=== PATIENT | female | born 1945 | race Caucasian/White ===

== ENCOUNTER 2017-05-27 03:09 | Observation (INO) | payer OTHER ==
--- NOTE | 2017-05-27 03:12 | EDPHY ---
H & P Time Seen by Provider: 05/27/17 03:12 HPI/ROS: HPI CHIEF COMPLAINT: "MY HEART IS POUNDING" HTN HISTORY OF PRESENT ILLNESS: Patient is a 72-year-old female, she denies having any significant medical history except for hypertension, she does not take any blood pressure medications she has been off of it for many months and does not remember what she is supposed to be taking. She states that her primary care doctor is at [place]. And then months ago she stopped taking her blood pressure medication. She states she does not have any significant medical history. Only surgical history is tonsillectomy. She presents to the emergency room stating that approx an hour ago she developed pounding in her chest, Palpitations or "very strong heart beats" States that her heart is beating very strong and she is worried that she has a fast heart rate is pounding. Additionally she reports lightheaded. Denies severe headache denies severe shortness of breath or chest pain. Blood pressure noted to be 226/97 upon arrival. 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 Past Medical History: Hypertension not on the medication Past Surgical History: Tonsillectomy no recent surgery Social History: Denies drugs alcohol tobacco. Family History: Noncontributory ROS REVIEW OF SYSTEMS: A comprehensive 10 point review of systems is otherwise negative aside from elements mentioned in the history of present illness. Exam Constitutional triage nursing summary reviewed, vital signs reviewed, awake/ alert. Vital signs at triage noted to be hypertensive. 226/97. Eyes normal conjunctivae and sclera, EOMI, PERRLA. HENT normal inspection, atraumatic, moist mucus membranes, no epistaxis, neck supple/ no meningismus, no raccoon eyes. Respiratory clear to auscultation bilaterally, normal breath sounds, no respiratory distress, no wheezing. Cardiovascular rate normal, regular rhythm, no murmur, no edema, distal pulses normal. Gastrointestinal soft, non-tender, no rebound, no guarding, normal bowel sounds, no distension, no pulsatile mass. Genitourinary no CVA tenderness. Musculoskeletal no midline vertebral tenderness, full range of motion, no calf swelling, no tenderness of extremities, no meningismus, good pulses, neurovascularly intact. Skin pink, warm, & dry, no rash, skin atraumatic. Neurologic awake, alert and oriented x 3, AAOx3, moves all 4 extremities equally, motor intact, sensory intact, CN II-XII intact, normal cerebellar, normal vision, normal speech. Psychiatric normal mood/affect. Heme/Lymph/Immune no lymphadenopathy. Differential diagnosis includes but is not limited to: Hypertensive emergency, hypertension urgency ACS, atypical chest pain, pneumothorax, pneumonia, pulmonary embolism, aortic dissection, congestive heart failure, tumor, musculoskeletal pain, esophageal pain, GERD, peptic ulcer disease, pancreatitis Medical Decision Making: Plan for this patient IV establishment blood draw, check basic blood work, chest x-ray, EKG, 10 mg IV hydralazine as her blood pressure is 226/97. Close monitoring re-evaluation. Re-evaluation: EKG interpretation by me on record in [email or web address] system. Impression time of EKG 3:22 a.m., sinus rhythm rate of [address] elevation no ST depression no significant T-wave abnormalities. ED x-ray chest one view: Unremarkable chest x-ray one view. Image interpreted by myself. 0429: Re-Examination at this time current blood pressure 123/66, heart rate 84 , pulse ox 96% on room air. Resting comfortably. This was after 10 mg IV hydralazine. Denies chest pain or shortness of breath at this time. 0523: Current blood pressure 135/62, heart rate 77, pulse ox 99% on room air. Urinalysis reviewed shows nitrite positive. 1 g Rocephin has been ordered. Urine culture will be ordered. Keflex prescribed for home. 0553: Patient currently resting comfortably she has no complaints she denies chest pain or shortness of breath. Current blood pressure 135/62, heart rate 81 , pulse ox 100% on room air. She is resting comfortably. She is receiving IV Rocephin at this time for UTI. Keflex will be prescribed. She did not have any chest pain shortness of breath upon arrival or during her ER visit but did come in for strong heartbeat and noted to be hypertensive her blood pressure greatly improved with just 10 mg IV hydralazine. She is doing well. Blood pressures been stable here. She would like to go home. Plan will be for repeat EKG and troponin if these are unremarkable are allow her to go home. However I did discussed return precautions with her. She understands return emergency room she develops worsening chest pain shortness of breath high blood pressure fever questions or concerns. EKG interpretation by me on record in [email or web address] system. Impression time of EKG 5:50 a.m., this is sinus rhythm rate of [address] elevation no ST depression no significant T-wave abnormalities. Rather unremarkable EKG. 0638: Repeat troponin is increasing. However technically not positive however given how hypertensive she was at her heart "pounding I will observe her today in the hospital. Given that the patient's troponin is increased, her age of 72, and how hypertensive she was I do think it is reasonable to observe her here today in the hospital. I have asked the hospitalist service to watch her repeat troponin possibly have Cardiology see her. I spoke with Dr. Webb. Source: Patient Constitutional: Initial Vital Signs Temperature (C) 36.7 C 05/27/17 03:11 Heart Rate 74 05/27/17 03:11 Respiratory Rate 18 05/27/17 03:11 Blood Pressure 226/97 H 05/27/17 03:11 O2 Sat (%) 96 05/27/17 03:11 O2 Delivery Mode Nasal Cannula O2 (L/minute) 2 Allergies/Adverse Reactions: No Known Allergies Allergy (Unverified 05/27/17 03:16) Home Medications: Medication Instructions Recorded Acetaminophen [Tylenol 325mg (*)] 325 mg PO DAILY PRN 05/27/17 Calcium Carbonate [Oyster Shell 500 mg PO DAILY 05/27/17 Calcium 500 mg (*)] Cholecalciferol Vit D3 [Vitamin D3 1,000 units PO DAILY 05/27/17 (*)] Glucosamine/Chondroitin 1 each PO DAILY 05/27/17 [Glucosamine/Chondroitin (*)] Herbals/Supplements -Info Only 1 each PO DAILY 05/27/17 Lisinopril [Zestril 10 mg (*)] 10 mg PO DAILY #30 tab 05/27/17 Multivitamins [Multivitamin (*)] 1 each PO DAILY 05/27/17 Medical Decision Making - Data Points Laboratory Results: Laboratory Results 05/27/17 03:25 05/27/17 03:25 Microbiology Results: MICROBIOLOGY 05/27/17 04:42 Urine,Clean Catch Urine Culture - Preliminary Klebsiella Oxytoca/Raoutella Medications Given: Discontinued Medications Acetaminophen (Tylenol) 650 mg PO Q4HRS PRN PRN Reason: Pain, Mild/Fever, Can Take PO Stop: 11/23/17 06:46 Last Admin: 05/27/17 12:19 Dose: 650 mg Aspirin (Aspirin) 324 mg PO ONCE ONE Stop: 05/27/17 06:55 Last Admin: 05/27/17 06:55 Dose: 324 mg Enoxaparin Sodium (Lovenox) 40 mg SC DAILY [facility] Stop: 11/23/17 08:59 Last Admin: 05/27/17 08:58 Dose: 40 mg Hydralazine HCl (Apresoline) 10 mg IVP EDNOW ONE Stop: 05/27/17 03:36 Last Admin: 05/27/17 03:39 Dose: 10 mg Sodium Chloride (Ns) 500 mls @ 0 mls/hr IV ONCE ONE PRN Reason: Wide Open Stop: 05/27/17 03:33 Last Admin: 05/27/17 03:38 Dose: 500 mls Ceftriaxone Sodium/Dextrose (Rocephin 1 Gm (Premix)) 50 mls @ 100 mls/hr IV EDNOW ONE PRN Reason: Protocol Stop: 05/27/17 05:52 Last Admin: 05/27/17 05:34 Dose: 50 mls Lisinopril (Zestril) 10 mg PO DAILY [facility] Stop: 11/23/17 13:44 Last Admin: 05/27/17 14:34 Dose: 10 mg Departure - Departure Disposition: [facility] Acute Clinical Impression: Palpitations Hypertension Qualifiers: Hypertension type: unspecified Qualified Code(s): I10 - Essential (primary) hypertension UTI (urinary tract infection) Qualifiers: Urinary tract infection type: acute cystitis Hematuria presence: without hematuria Qualified Code(s): N30.00 - Acute cystitis without hematuria Condition: Fair
--- NOTE | 2017-05-27 03:25 | CPEKG ---
Heart Rate: 85 RR Interval: 706 P-R Interval: 172 QRSD Interval: 70 QT Interval: 408 QTC Interval: 486 P [place]: 70 QRS [place]: 13 T Wave [place]: 67 EKG Severity - ABNORMAL ECG - EKG Impression: SINUS RHYTHM EKG Impression: ABNRM R PROG, CONSIDER ASMI OR LEAD PLACEMENT EKG Impression: BORDERLINE PROLONGED QT INTERVAL Electronically Signed By: Felipe Ley 27-May-2017 07:12:37
[2017-05-27] MEDS ORDERED: NS 500 ML IV ONE (03:32)
[2017-05-27] MEDS ORDERED: hydrALAZINE 20 MG/ML VIAL IVP ONE (03:35)
[2017-05-27 03:39] LABS: PLATELET COUNT 324 10^3/uL (150-400)
[2017-05-27 03:47] LABS: CREATINE KINASE 240 IU/L (0-156)
[2017-05-27 03:48] LABS: INR 0.84 (0.83-1.16); PROTIME(PATIENT) 11.7 SEC (12.0-15.0)
--- NOTE | 2017-05-27 06:00 | CPEKG ---
Heart Rate: 79 RR Interval: 759 P-R Interval: 196 QRSD Interval: 70 QT Interval: 412 QTC Interval: 473 P [place]: 70 QRS [place]: 20 T Wave [place]: 71 EKG Severity - NORMAL ECG - EKG Impression: SINUS RHYTHM Electronically Signed By: Felipe Ley 27-May-2017 07:12:37
[2017-05-27] MEDS ORDERED: ONDANSETRON 4 MG/2 ML VIAL IVP PRN (06:47)
[2017-05-27] MEDS ORDERED: ACETAMINOPHEN 325 MG TAB PO PRN (06:47)
[2017-05-27] MEDS ORDERED: ONDANSETRON DISINTEGRATING 4 MG TAB PO PRN (06:47)
[2017-05-27] MEDS ORDERED: ASPIRIN 81 MG CHEWABLE TAB ONE (06:52)
[2017-05-27] MEDS ORDERED: ASPIRIN 325 MG TAB PO ONE (06:53)
[2017-05-27] MEDS ORDERED: ASPIRIN 81 MG CHEWABLE TAB PO ONE (06:54)
--- NOTE | 2017-05-27 07:03 | PDGENHP ---
History and Physical - Chief Complaint Malaise - History of Present Illness 72 yo F w/ hx of HTN presents with lightheadedness and sensation of chest pounding. Patient states she has been feeling fatigued for a few days. Then, last evening, she noted dizziness, lightheadedness, and a sensation that her heart was pounding in her chest. She then came to the ED for evaluation. Upon arrival in the ED she was noted to be severely hypertensive, which resolved with hydralazine IV. At the time of my evaluation patient states she is feeling improved and denies chest pain. Of note, she was previously on treatment for hypertension, but she states that her PCP took her off the medication she was on because her BP has improved. She currently does not take any regular medications. History Information - Allergies/Home Medication List Allergies/Adverse Reactions: No Known Allergies Allergy (Unverified 05/27/17 03:16) I have personally reviewed and updated: family history, medical history - Past Medical History hypertension - Family History Positive for: stroke - Social History Smoking Status: Never smoked Review of Systems Review of Systems: ROS: 10pt was reviewed & negative except for what was stated in HPI & below Physical Exam Physical Exam: Temp Pulse Resp BP Pulse Ox 36.7 C 80 16 135/62 H 99 05/27/17 03:11 05/27/17 05:41 05/27/17 05:41 05/27/17 05:41 05/27/17 05:41 Constitutional: no apparent distress, not in pain Eyes: PERRL, EOMI Ears, Nose, Mouth, Throat: moist mucous membranes, no oral mucosal ulcers Cardiovascular: regular rate and rhythym, other (S4) Respiratory: no respiratory distress, clear to auscultation Gastrointestinal: normoactive bowel sounds, soft, non-tender abdomen Skin: warm, normal color Musculoskeletal: full muscle strength, no muscle tenderness Neurologic: AAOx3, CN II-XII Intact Psychiatric: interacting appropriately, not anxious Lab Data & Imaging Review 05/27/17 03:25 05/27/17 03:25 WBC 8.53 10^3/uL (3.80-9.50) 05/27/17 03:25 RBC 5.01 10^6/uL (4.18-5.33) 05/27/17 03:25 Hgb 14.7 g/dL (12.6-16.3) 05/27/17 03:25 Hct 44.4 % (38.0-47.0) 05/27/17 03:25 MCV 88.6 fL (81.5-99.8) 05/27/17 03:25 MCH 29.3 pg (27.9-34.1) 05/27/17 03:25 MCHC 33.1 g/dL (32.4-36.7) 05/27/17 03:25 RDW 13.7 % (11.5-15.2) 05/27/17 03:25 Plt Count 324 10^3/uL (150-400) 05/27/17 03:25 MPV 9.1 fL (8.7-11.7) 05/27/17 03:25 Neut % (Auto) 67.1 % (39.3-74.2) 05/27/17 03:25 Lymph % (Auto) 22.0 % (15.0-45.0) 05/27/17 03:25 [place] % (Auto) 7.0 % (4.5-13.0) 05/27/17 03:25 Eos % (Auto) 2.8 % (0.6-7.6) 05/27/17 03:25 Baso % (Auto) 0.7 % (0.3-1.7) 05/27/17 03:25 Nucleat RBC Rel Count 0.0 % (0.0-0.2) 05/27/17 03:25 Absolute Neuts (auto) 5.72 10^3/uL (1.70-6.50) 05/27/17 03:25 Absolute Lymphs (auto) 1.88 10^3/uL (1.00-3.00) 05/27/17 03:25 Absolute Monos (auto) 0.60 10^3/uL (0.30-0.80) 05/27/17 03:25 Absolute Eos (auto) 0.24 10^3/uL (0.03-0.40) 05/27/17 03:25 Absolute Basos (auto) 0.06 10^3/uL (0.02-0.10) 05/27/17 03:25 Absolute Nucleated RBC 0.00 10^3/uL (0-0.01) 05/27/17 03:25 Immature Gran % 0.4 % (0.0-1.1) 05/27/17 03:25 Immature Gran # 0.03 10^3/uL (0.00-0.10) 05/27/17 03:25 PT 11.7 SEC (12.0-15.0) L 05/27/17 03:25 INR 0.84 (0.83-1.16) 05/27/17 03:25 APTT 24.6 SEC (23.0-38.0) 05/27/17 03:25 Carboxyhemoglobin 1.7 % (0-1.5) H 05/27/17 03:25 Sodium 141 mEq/L (135-145) 05/27/17 03:25 Potassium 4.6 mEq/L (3.5-5.2) 05/27/17 03:25 Chloride 105 mEq/L (97-110) 05/27/17 03:25 Carbon Dioxide 24 mEq/l (22-31) 05/27/17 03:25 Anion Gap 12 mEq/L (8-16) 05/27/17 03:25 BUN 21 mg/dL (7-23) 05/27/17 03:25 Creatinine 0.9 mg/dL (0.6-1.0) 05/27/17 03:25 Estimated GFR > 60 05/27/17 03:25 Glucose 101 mg/dL (70-100) H 05/27/17 03:25 Calcium 9.3 mg/dL (8.5-10.4) 05/27/17 03:25 Magnesium 2.0 mg/dL (1.6-2.3) 05/27/17 03:25 Total Bilirubin 0.6 mg/dL (0.1-1.4) 05/27/17 03:25 Conjugated Bilirubin 0.4 mg/dL (0.0-0.5) 05/27/17 03:25 Unconjugated Bilirubin 0.2 mg/dL (0.0-1.1) 05/27/17 03:25 AST 34 IU/L (14-46) 05/27/17 03:25 ALT 41 IU/L (9-52) 05/27/17 03:25 Alkaline Phosphatase 78 IU/L (38-126) 05/27/17 03:25 Creatine Kinase 240 IU/L (0-156) H 05/27/17 03:25 CK-MB (CK-2) Fraction 3.97 ng/mL (0.00-3.19) H 05/27/17 03:25 CK-MB (CK-2) % 1.7 % (0.0-4.0) 05/27/17 03:25 Creatine Kinase Interp NEGATIVE (NEGATIVE) 05/27/17 03:25 Troponin I 0.018 ng/mL (0.000-0.034) 05/27/17 06:00 NT-Pro-B Natriuret Pep 280 pg/mL (0-125) H 05/27/17 03:25 Total Protein 7.2 g/dL (6.3-8.2) 05/27/17 03:25 Albumin 4.4 g/dL (3.5-5.0) 05/27/17 03:25 Urine Color YELLOW 05/27/17 04:42 Urine Appearance CLEAR 05/27/17 04:42 Urine pH 5.0 (5.0-7.5) 05/27/17 04:42 Ur Specific [place] 1.008 (1.002-1.030) 05/27/17 04:42 Urine Protein NEGATIVE (NEGATIVE) 05/27/17 04:42 Urine Ketones NEGATIVE (NEGATIVE) 05/27/17 04:42 Urine Blood NEGATIVE (NEGATIVE) 05/27/17 04:42 Urine Nitrate POSITIVE (NEGATIVE) H 05/27/17 04:42 Urine Bilirubin NEGATIVE (NEGATIVE) 05/27/17 04:42 Urine Urobilinogen NEGATIVE EU (0.2-1.0) 05/27/17 04:42 Ur Leukocyte Esterase 1+ (NEGATIVE) H 05/27/17 04:42 Urine RBC 1-3 /hpf (0-3) 05/27/17 04:42 Urine WBC 1-3 /hpf (0-3) 05/27/17 04:42 Ur Epithelial Cells TRACE /lpf (NONE-1+) 05/27/17 04:42 Urine Bacteria 1+ /hpf (NONE SEEN) H 05/27/17 04:42 Urine Mucus TRACE /lpf (NONE-1+) 05/27/17 04:42 Urine Glucose NEGATIVE (NEGATIVE) 05/27/17 04:42 Visualized and Interpreted Chest x-ray results: Yes Chest X-Ray results: no infiltrate Visualized and Interpreted EKG results: Yes EKG Interpretation: Positive for: normal sinsus rhythm Assessment & Plan Assessment: 72 yo F w/ hx of HTN presents with malaise and chest discomfort, possibly related to uncontrolled HTN. Plan: 1. Malaise, chest pounding - Patient describes malaise and "chest pounding" since last evening. This is possibly related to severely elevated BP noted on arrival (SBP 220). Work-up thus far unrevealing of other etiology aside from asymptomatic bacteriuria; unclear if this could be contributing. Troponin x2 and ECG non-ischemic in the ED. - Admit to PCU for observation - Monitor on telemetry, trend cardiac enzymes (next at 1200) 2. Hypertensive urgency - SBP>220 on arrival, improved rapidly after hydralazine 10 mg IV x1 in the ED. Patient states she was previously on BP medication but this was discontinued by PCP after her BP improved. - Monitor BP - May benefit from restarting daily medication - Currently below goal BP (SBP currently 130s) so will not add now 3. Asymptomatic bacteriuria - Patient denies symptoms of UTI, although she does have positive nitrates on UA. - S/p CTX in ED - Observe off of further antibiotics and await culture results Diet - Regular Code - Full Ppx - LMWH Dispo - Admit under observation status
[2017-05-27] MEDS ORDERED: ENOXAPARIN 40 MG/0.4 ML SYR SC SCH (09:00)
--- NOTE | 2017-05-27 12:28 | ASMTCASEMG ---
Living Arrangements What is your living Answers: Alone arrangement? Who do you live with? Type Of Residence What kind of residence do Answers: House you live in? Discharge Plan Comments Coordination Status Comments Notes: Pt is a 72 y/o female admitted for malaise. Pt will most likely d/c independent when medically stable. No therapies ordered at this time. CM available for changes. Plan: Independent Date Signed: 05/27/2017 12:27 PM Electronically Signed By:JESSEE Leigh
[2017-05-27] MEDS ORDERED: LISINOPRIL 10 MG TAB PO SCH (13:45)
[2017-05-27 14:34] VITALS: BP 157/83
--- NOTE | 2017-05-27 14:58 | GDS ---
[f rep st] DISCHARGE SUMMARY DISCHARGE DIAGNOSES: 1. Symptomatic hypertension with blood pressure 220/100. 2. Modestly elevated carbon monoxide poisoning attributed to space heater at work. HOSPITAL COURSE: Please see Admission History and Physical by Dr. Artemio Webb. The patient presented with headache and some chest pounding. She had no events on telemetry. She had troponins that were negative. The last troponin is pending at this time. She had EKGs that were nonischemic. Chest x-ray was unremarkable. She was given antibiotics for a UTI, although her symptomatology is not consistent with UA. She had a modestly elevated carboxyhemoglobin. However, the patient is not a smoker. This is attributable to a space heater. The patient is alert, not somnolent. She is disc harged home with a prescription for lisinopril sent [place]. /[id number]/MODL
[2017-05-28] MEDS ORDERED: GLUCOSAMINE/CHONDROITIN CAP PO SCH (09:00)
[2017-05-28] MEDS ORDERED: CALCIUM CARBONATE 500 MG TAB PO SCH (09:00)
[2017-05-28] MEDS ORDERED: MULTIVITAMINS 1 EACH TAB PO SCH (09:00)
[2017-05-28] MEDS ORDERED: CHOLECALCIFEROL VIT D3 1,000 UNITS TAB PO SCH (09:00)
[2017-05-28] MEDS ORDERED: Herbals/Supplements -Info Only PO SCH (09:00)
== END 2017-05-27 17:30 | disposition home or self-care (01) ==
LOC: F2W 08:32
PROVIDERS: ADMIT Student in an Organized Health Care Education/Training Program; ATTEND Internal Medicine
DX: I10 Essential (primary) hypertension (principal); T58.8X1A Toxic effect of carbon monoxide from other source, accidental (unintentional), initial encounter; N30.00 Acute cystitis without hematuria; R42 Dizziness and giddiness; R00.2 Palpitations; Z82.3 Family history of stroke
CPT/HCPCS: 71045; 93005; 96361; 96365; 96375; 99285; G0378; J0360; J0696; J1650

== ENCOUNTER 2017-10-18 | Emergency (ER) | payer OTHER | END 2017-10-18 12:53 | disposition home or self-care (01) ==